=== PATIENT | female | born 1990 | race Caucasian/White ===

== ENCOUNTER 2021-02-26 22:20 | Outpatient (CLI) | payer OTHER ==
[2021-02-26 23:44] LABS: BASOPHILS % (AUTO) 0 % (0-1); EOSINOPHILS % (AUTO) 1 % (1-7); LYMPHOCYTES % (AUTO) 26 % (22-44); MEAN CORPUSCULAR HEMOGLOBIN 29.8 pg (27.0-34.8); MEAN CORPUSCULAR HGB CONC 34.2 g/dL (32.4-35.8); MEAN PLATELET VOLUME 10.2 fL (7.4-10.4); MONOCYTES % (AUTO) 5 % (2-9); NEUTROPHILS % (AUTO) 68 % (42-75); PLATELET COUNT 240 x10^3/uL (130-400); RED BLOOD COUNT 4.63 x10^6/uL (3.82-5.3); RED CELL DISTRIBUTION WIDTH 13.7 % (9.6-15.2)
[2021-02-26 23:48] LABS: ALANINE AMINOTRANSFERASE 69 U/L (12-78); ALBUMIN 2.2 g/dL (3.4-5.0); ANION GAP 7 mmol/L (5-15); CALCIUM 9.2 mg/dL (8.5-10.1); CHLORIDE 109 mmol/L (98-107)
[2021-02-26 23:51] LABS: ALKALINE PHOSPHATASE 278 U/L (45-117); BILIRUBIN,TOTAL 1.1 mg/dL (0.2-1.0); CREATININE 0.69 mg/dL (0.55-1.02); TOTAL PROTEIN 7.4 g/dL (6.4-8.2)
== END 2021-02-27 00:25 | disposition home or self-care (01) ==
LOC: LDOP 22:20
PROVIDERS: ATTEND Obstetrics & Gynecology
DX: O26.899 Other specified pregnancy related conditions, unspecified trimester (principal); Z3A.00 Weeks of gestation of pregnancy not specified
CPT/HCPCS: 36415; 59025; 80053; 82239; 85025

== ENCOUNTER 2021-02-28 16:29 | Inpatient (IN) | payer OTHER ==
[~2021-02-28] VITALS: Ht 154.9 cm; Wt 65.9 kg
[2021-02-28] MEDS ORDERED: OXYTOCIN 30U/ 0.9% NaCL 500ML 500 ML ONE (16:37)
[2021-02-28] MEDS ORDERED: NEWBORN KIT ONE (16:37)
[2021-02-28] MEDS ORDERED: LIDOCAINE 1%, 20ML ONE (16:37)
[2021-02-28] MEDS ORDERED: MISOPROSTOL 200 MCG TABLET ONE (16:37)
[2021-02-28] MEDS ORDERED: PENICILLIN GK 5,000,000 UNITS in DEXTROSE 5% 100 ML IVPB ONE (17:00)
[2021-02-28] MEDS ORDERED: OXYTOCIN 30U/ 0.9% NaCL 500ML 500 ML IV ONE (17:00)
[2021-02-28] MEDS ORDERED: D5%-LACTATED RINGERS 1,000 ML IV SCH (17:00)
[2021-02-28] MEDS ORDERED: TERBUTALINE 1 MG/ML, 1ML SQ PRN (17:00)
[2021-02-28] MEDS ORDERED: ONDANSETRON 2MG/ML, 2ML IVPush PRN (17:00)
[2021-02-28] MEDS ORDERED: TERBUTALINE 1 MG/ML, 1ML IVPush PRN (17:00)
[2021-02-28] MEDS ORDERED: LACTATED RINGERS 1,000 ML IV SCH (17:00)
[2021-02-28] MEDS ORDERED: CALCIUM CARBONATE 500 MG TAB.CHEW PO PRN (17:00)
[2021-02-28] MEDS ORDERED: FENTANYL PF 100 MCG/2ML IVPush PRN (17:00)
[2021-02-28 17:10] LABS: BASOPHILS % (AUTO) 1 % (0-1); EOSINOPHILS % (AUTO) 1 % (1-7); LYMPHOCYTES % (AUTO) 36 % (22-44); MEAN CORPUSCULAR HGB CONC 34.5 g/dL (32.4-35.8); MEAN PLATELET VOLUME 10.3 fL (7.4-10.4); MONOCYTES % (AUTO) 6 % (2-9); NEUTROPHILS % (AUTO) 56 % (42-75); PLATELET COUNT 241 x10^3/uL (130-400); RED BLOOD COUNT 4.69 x10^6/uL (3.82-5.3); RED CELL DISTRIBUTION WIDTH 13.7 % (9.6-15.2)
[2021-02-28] MEDS ORDERED: IBUPROFEN 600 MG TABLET ONE (17:42)
[2021-02-28] MEDS: IBUPROFEN 600 MG TABLET PO PRN (17:43)
[2021-02-28] MEDS ORDERED: ONDANSETRON 2MG/ML, 2ML IV PRN (18:00)
[2021-02-28] MEDS ORDERED: METHYLERGONOVINE 0.2 MG/ML IM PRN (18:00)
[2021-02-28] MEDS ORDERED: OXYTOCIN 10 UNITS/ML, 1ML IM PRN (18:00)
[2021-02-28] MEDS ORDERED: SIMETHICONE 80 MG CHEW TAB PO PRN (18:00)
[2021-02-28] MEDS ORDERED: CARBOPROST TROMETHAMINE 250 MCG/ML, 1ML IM PRN (18:00)
[2021-02-28] MEDS: OXYTOCIN 30U/ 0.9% NaCL 500ML 500 ML IV SCH (18:00)
[2021-02-28] MEDS ORDERED: OXYcodone/APAP 5/325MG TABLET PO PRN (18:00)
[2021-02-28] MEDS ORDERED: MISOPROSTOL 200 MCG TABLET PR PRN (18:00)
[2021-02-28] MEDS ORDERED: ACETAMINOPHEN 325 MG TABLET PO PRN (18:00)
[2021-02-28] MEDS ORDERED: METOCLOPRAMIDE 5 MG/ML, 2ML IV PRN (18:00)
[2021-02-28] MEDS ORDERED: DEXTROSE 47%, 15GM GEL ONE (18:42)
[2021-02-28 19:05] VITALS: BP 126/84
[2021-02-28] MEDS: OXYcodone/APAP 5/325MG TABLET PO PRN (19:29)
[2021-03-01] VITALS: BP 111/73
[2021-03-01] MEDS: DOCUSATE 100 MG CAPSULE PO PRN ×3 (00:31→23:53)
[2021-03-01] MEDS: IBUPROFEN 600 MG TABLET PO PRN ×4 (00:31→23:53)
[2021-03-01 02:44] LABS: BASOPHILS % (AUTO) 0 % (0-1); EOSINOPHILS % (AUTO) 0 % (1-7); LYMPHOCYTES % (AUTO) 20 % (22-44); MEAN CORPUSCULAR HEMOGLOBIN 29.7 pg (27.0-34.8); MEAN PLATELET VOLUME 10.6 fL (7.4-10.4); MONOCYTES % (AUTO) 5 % (2-9); NEUTROPHILS % (AUTO) 75 % (42-75); PLATELET COUNT 194 x10^3/uL (130-400); RED CELL DISTRIBUTION WIDTH 13.7 % (9.6-15.2)
[2021-03-01 03:50] VITALS: BP 111/73
[2021-03-01] MEDS: OXYTOCIN 30U/ 0.9% NaCL 500ML 500 ML IV SCH (04:00)
[2021-03-01] MEDS: OXYcodone/APAP 5/325MG TABLET PO PRN ×2 (04:26→12:40)
[2021-03-01 08:30] VITALS: BP 114/78
[2021-03-01] MEDS: PRENATAL VIT/IRON/FA 1 EACH TABLET PO SCH (08:50)
[2021-03-01 13:00] VITALS: BP 112/76
[2021-03-01 20:10] VITALS: BP 102/63
[2021-03-02] MEDS: OXYcodone/APAP 5/325MG TABLET PO PRN ×2 (03:34→13:42)
[2021-03-02 07:55] VITALS: BP 120/78
[2021-03-02] MEDS: IBUPROFEN 600 MG TABLET PO PRN (07:55)
[2021-03-02] MEDS: DOCUSATE 100 MG CAPSULE PO PRN (07:55)
[2021-03-02] MEDS: PRENATAL VIT/IRON/FA 1 EACH TABLET PO SCH (07:55)
[2021-03-02] MEDS ORDERED: IBUP-1222 PO (14:13)
[2021-03-02] MEDS ORDERED: OXYC1TAB12 PO (14:13)
[2021-03-02] MEDS ORDERED: DOCU-131 PO (14:14)
== END 2021-03-02 17:45 | disposition home or self-care (01) | DRG 807 ==
LOC: LDOP 16:29 → LDIP 16:40 → 2NW 19:22
PROVIDERS: ADMIT Obstetrics & Gynecology; ATTEND Obstetrics & Gynecology
PROC: 0HQ9XZZ Repair Perineum Skin, External Approach (ICD-10-PCS; principal; 2021-02-28)
PROC: 10E0XZZ Delivery of Products of Conception, External Approach (ICD-10-PCS; 2021-02-28)
DX: O62.3 Precipitate labor (principal); Z37.0 Single live birth; O24.420 Gestational diabetes mellitus in childbirth, diet controlled; O69.81X0 Labor and delivery complicated by cord around neck, without compression, not applicable or unspecified; O99.824 Streptococcus B carrier state complicating childbirth; O70.0 First degree perineal laceration during delivery; Z20.822 Contact with and (suspected) exposure to COVID-19; Z3A.37 37 weeks gestation of pregnancy
CPT/HCPCS: 36415; 85025; 86592; 86850; 86900; 87635; G0378; J2540; J2590; J7120